=== PATIENT | female | born 1995 | race Caucasian/White ===

== ENCOUNTER → 2020-11-27 | Outpatient (CLI) | payer BC ==
--- NOTE | 2020-11-27 14:00 | REP ---
INDICATION: ANATOMY/TATYANA 04/18/21 - 04/24/21. COMPARISON: None. TECHNIQUE: Real-time sonographic evaluation of the gravid uterus performed. FINDINGS: Estimated gestational age is19 weeks 0 days, EDC 04/23/2021. Today's measurements indicate appropriate growth. Presentation: Cephalic Placenta posterior, grade 1, without evidence of placenta previa. heart rate is recorded at 150 beats per minute. Amniotic fluid is subjectively normal. Closed cervical length is measured at 5.2 cm. Biometry chart: BPD: 46 mm, 19 weeks 6 days, 74th percentile. HC: 173 mm, 19 weeks 6 days, 75th percentile AC: 148 mm, 20 weeks 0 days, 72nd percentile Femur length: 32 mm, 20 weeks 0 days, 75th percentile HC to AC ratio: 1.17, normal range 1.06-1.25. Estimated weight: 326g, greater than 97th percentile. anatomy: Cranium: Grossly normal Lateral Ventricles/Choroid Plexus: Grossly normal Posterior Fossa/Cerebellum: Grossly normal Nose/lips/profile: Grossly normal Four chamber heart: Grossly normal Right ventricular outflow tract: Not well seen due to position. Left ventricular outflow tract: Grossly normal Left-sided stomach: Grossly normal Kidneys: Grossly normal Bladder: Grossly normal Cord Insertion: Grossly normal 3 vessel cord: Grossly normal Spine: Not well seen due to position. IMPRESSION: Viable single intrauterine gestation as above. <Electronically signed by Aguilar Pitts > 11/27/20 [id number]
== END ==
LOC: M WHC 12:56
PROVIDERS: ATTEND Advanced Practice Midwife
DX: Z34.82 Encounter for supervision of other normal pregnancy, second trimester (principal)

== ENCOUNTER 2020-12-04 18:15 | Emergency (ER) | payer BC ==
[~2020-12-04] VITALS: Ht 167.6 cm; Wt 100.6 kg
[2020-12-04] MEDS ORDERED: PRENTAB53 PO (18:23)
[2020-12-04 20:15] LABS: HEMATOCRIT 34.9 % (36.0-47.0); HEMOGLOBIN 11.4 g/dl (12.0-15.5); MEAN CORPUSCULAR HEMOGLOBIN 28.2 pg (27.0-33.0); MEAN CORPUSCULAR HGB CONC 32.7 g/dl (32.0-36.5); MEAN CORPUSCULAR VOLUME 86.4 fl (80.0-96.0); PLATELET COUNT, AUTOMATED 588 10^3/uL (150-450); RED BLOOD COUNT 4.04 10^6/uL (4.00-5.40); WHITE BLOOD COUNT 15.7 10^3/uL (4.0-10.0)
[2020-12-04 20:42] LABS: ALBUMIN 2.9 GM/DL (3.2-5.2); ALT/SGPT 18 U/L (12-78); BILIRUBIN,DIRECT < 0.1 MG/DL (0.0-0.2); BILIRUBIN,TOTAL 0.2 MG/DL (0.2-1.0); TOTAL PROTEIN 7.2 GM/DL (6.4-8.2)
[2020-12-04] MEDS ORDERED: ONDANSETRON 4MG/2ML VIAL IV ONE (21:00)
[2020-12-04] MEDS ORDERED: NS 1,000 ML IV ONE (21:00)
[2020-12-04 21:42] LABS: MONO SCRN NEGATIVE (NEGATIVE)
[2020-12-04] MEDS ORDERED: diphenhydrAMINE 50MG/ML VIAL (J1200) IV ONE (22:05)
[2020-12-04] MEDS ORDERED: ACETAMINOPHEN 500 MG TAB PO ONE (22:05)
[2020-12-04 22:32] LABS: RSV AMPLIFICATION NEGATIVE (NEGATIVE)
[2020-12-05] MEDS ORDERED: MULTIVITAMIN -ADULT INJECTION 10 ML, THIAMINE INJection 100 MG, FOLIC ACID 1 MG in NS 1... IV ONE ×4
[2020-12-05] MEDS ORDERED: MAG SULF 1GM/100ML (MAG RUN) 1 GM in IV 1 EA IV ONE (02:55)
[2020-12-05] MEDS ORDERED: METOCLOPRAMIDE INJ 10MG/2ML VIAL (J2765 PER 1) IV ONE (02:55)
[2020-12-05 03:24] LABS: BASO # 0.1 10^3/uL (0.0-0.2); BASO % 0.3 % (0.0-1.0); EOS # 0.3 10^3/uL (0.0-0.5); EOS % 1.9 % (0.0-3.0); LYMPH # 3.2 10^3/uL (1.5-5.0); LYMPH % 20.8 % (24.0-44.0); MONO # 0.9 10^3/uL (0.0-0.8); MONO % 5.6 % (2.0-8.0); NEUTROPHILS % 70.9 % (36.0-66.0)
--- NOTE | 2020-12-05 03:37 | REPVR ---
PROCEDURE INFORMATION: Exam: CT Head Without Contrast Exam date and time: 12/05/2020 2:46 AM Age: 25 years old Clinical indication: Pain; Headache not specified; Additional info: Intractable headache TECHNIQUE: Imaging protocol: Computed tomography of the head without contrast. Radiation optimization: All CT scans at this facility use at least one of these dose optimization techniques: automated exposure control; mA and/or kV adjustment per patient size (includes targeted exams where dose is matched to clinical indication); or iterative reconstruction. COMPARISON: No relevant prior studies available. FINDINGS: Brain: The white-neal differentiation is preserved demonstrating no acute territorial type infarct. No acute intracranial hemorrhage is visualized. No intracranial mass effect. There is no midline shift. Artifact limits evaluation of the lam. Cerebral ventricles: No ventriculomegaly. Bones/joints: The calvarium demonstrates no evidence for a depressed fracture. Paranasal sinuses: The frontal sinuses are not formed. No air-fluid levels within the remaining paranasal sinuses. Mastoid air cells: No mastoid effusion. Soft tissues: Unremarkable. IMPRESSION: No acute intracranial abnormality. Electronically signed by: Lars Ramirez On 12/05/2020 03:36:56 AM
[2020-12-05 04:14] LABS: PLATELET ESTIMATE NORMAL (NORMAL)
[2020-12-05] MEDS ORDERED: ONDA4TAB6 PO (05:23)
[2020-12-05 05:30] VITALS: BP 136/66
== END 2020-12-05 05:44 | disposition home or self-care (01) ==
LOC: M ED 18:15
DX: O99.355 Diseases of the nervous system complicating the puerperium (principal); R51.9 Headache, unspecified; Z3A.21 21 weeks gestation of pregnancy; Z79.899 Other long term (current) drug therapy
CPT/HCPCS: 70450; 80047; 80076; 81001; 85027; 86308; 87086; 87631; 87880; 96361; 96365; 96367; 96375; 99284; J1200; J2405; J2765; J3411; J3475

== ENCOUNTER → 2021-01-01 | Outpatient (CLI) | payer BC, OTHER ==
[~2021-01-01] MED LIST: ONDA4TAB6 PO; PRENTAB53 PO
--- NOTE | 2021-01-01 10:17 | REP ---
INDICATION: F/U ANATOMY-SPONE/HEART/VOTS COMPARISON: 11/27/2020 TECHNIQUE: Transabdominal obstetrical ultrasound with color Doppler evaluation. FINDINGS: Examination demonstrates a single live intrauterine in cephalic presentation. motion is identified by technologist. Placenta is noted posterior and grade 1 without evidence for placenta previa or abruption. Amniotic fluid volume is normal. Gestational age by LMP and 1st U/S 24 weeks 0 days with TATYANA 04/23/2021. Gestational age by current measurements 24 weeks 4 days with TATYANA 04/19/2021. FHR equals 144 beats per minute. Estimated weight 703 grams (72ndpercentile based on selected age at 23 weeks 6 days). Anatomical assessment demonstrates normal structures including cranium, choroid plexus, cavum, cerebellum/posterior fossa, orbits, lungs, four-chamber heart/ventricular outflow tracts, diaphragm, stomach, cord insertion/three-vessel cord, kidneys/bladder, spine, and extremities. IMPRESSION: Single live intrauterine in cephalic presentation demonstrating appropriate estimated weight. In conjunction with prior examination anatomical assessment is complete and normal. <Electronically signed by Gabo Maya > 01/01/21 [id number]
== END ==
LOC: M WHC 08:29
PROVIDERS: ATTEND Advanced Practice Midwife
DX: Z36.89 Encounter for other specified antenatal screening (principal)

== ENCOUNTER → 2021-01-23 | Outpatient (REF) | payer OTHER ==
[2021-01-23 13:55] LABS: HEMATOCRIT 29.9 % (36.0-47.0); HEMOGLOBIN 9.5 g/dl (12.0-15.5); MEAN CORPUSCULAR HEMOGLOBIN 26.9 pg (27.0-33.0); MEAN CORPUSCULAR HGB CONC 31.8 g/dl (32.0-36.5); MEAN CORPUSCULAR VOLUME 84.7 fl (80.0-96.0); PLATELET COUNT, AUTOMATED 625 10^3/uL (150-450); RED BLOOD COUNT 3.53 10^6/uL (4.00-5.40)
== END ==
LOC: M PLALAB 10:07
PROVIDERS: ATTEND Advanced Practice Midwife
DX: Z34.92 Encounter for supervision of normal pregnancy, unspecified, second trimester (principal)

== ENCOUNTER → 2021-03-17 | Outpatient (REF) | payer OTHER | LOC: M PLALAB 08:47 | PROVIDERS: ATTEND Obstetrics & Gynecology | DX: O99.013 Anemia complicating pregnancy, third trimester (principal) ==

== ENCOUNTER → 2021-03-26 | Outpatient (REF) | payer OTHER | LOC: M SFHCWAGY 16:56 | PROVIDERS: ATTEND Advanced Practice Midwife | DX: O99.213 Obesity complicating pregnancy, third trimester (principal) ==

== ENCOUNTER 2021-04-09 04:11 | Inpatient (IN) | payer OTHER ==
[~2021-04-09] VITALS: Ht 167.6 cm; Wt 110.5 kg
[2021-04-09] VITALS (23 sets, daily range): BP systolic 120–144; BP diastolic 59–85
[2021-04-09] MEDS ORDERED: FERR32TA PO (04:35)
[2021-04-09] MEDS ORDERED: HOME MED LIST COMPLETE! XX SCH ×2 (04:40→08:55)
[2021-04-09] MEDS ORDERED: CARBOPROST TROMETHAMINE 250 MCG/ML AMP IM PRN (06:50)
[2021-04-09] MEDS ORDERED: LIDOCAINE 1% MDV 20ML VIAL INFIL PRN (06:50)
[2021-04-09] MEDS ORDERED: OXYTOCIN DRIP 30 UNITS in IV 1 EA IV SCH (06:50)
[2021-04-09] MEDS ORDERED: OXYTOCIN DRIP 30 UNITS in IV 1 EA IV PRN ×4 (06:50)
[2021-04-09] MEDS ORDERED: METHYLERGONOVINE MALEATE 0.2 MG/ML VIAL (J2210) IM PRN (06:50)
[2021-04-09] MEDS ORDERED: OXYTOCIN INJ 10 UNITS/ML VIAL (J2590) IM PRN (06:50)
[2021-04-09 07:14] LABS: HEMATOCRIT 33.8 % (36.0-47.0); HEMOGLOBIN 11.1 g/dl (12.0-15.5); MEAN CORPUSCULAR HEMOGLOBIN 27.6 pg (27.0-33.0); MEAN CORPUSCULAR HGB CONC 32.8 g/dl (32.0-36.5); MEAN CORPUSCULAR VOLUME 84.1 fl (80.0-96.0); PLATELET COUNT, AUTOMATED 464 10^3/uL (150-450); RED BLOOD COUNT 4.02 10^6/uL (4.00-5.40); WHITE BLOOD COUNT 12.9 10^3/uL (4.0-10.0)
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
[2021-04-09] MEDS ORDERED: FERR240T PO (09:02)
[2021-04-09] MEDS: LR 1,000 ML IV SCH ×2 (09:43→16:59)
[2021-04-09] MEDS ORDERED: PROMETHAZINE INJ 25 MG/ML VIAL (J2550) IV ONE (16:45)
[2021-04-09] MEDS ORDERED: BUTORPHANOL 2 MG/ML INJ (J0595) IV ONE (16:45)
[2021-04-09] MEDS ORDERED: IBUPROFEN 600MG TAB PO PRN (18:20)
[2021-04-09] MEDS ORDERED: ACETAMINOPHEN TAB 650MG DOSE (2X325MG) PO PRN (18:20)
[2021-04-09] MEDS ORDERED: DIBUCAINE 1% OINTMENT 30GM TOP PRN (18:20)
[2021-04-09] MEDS ORDERED: RHOGAM 300 MCG (1500 IU) INJ (J2790) IM SCH (18:20)
[2021-04-09] MEDS ORDERED: MEASLES,MUMPS,RUBELLA VACCINE INJ (MMR-II) (90707) SC SCH (18:20)
[2021-04-09] MEDS ORDERED: METHYLERGONOVINE MALEATE 0.2 MG TAB PO PRN (18:20)
[2021-04-09] MEDS ORDERED: DOCUSATE SODIUM 100MG CAPSULE PO PRN (18:20)
--- NOTE | 2021-04-09 18:39 | DN ---
DELIVERY NOTE DATE OF DELIVERY: 04/09/2021 TIME OF : GENDER: Male APGARS: 9 and 9 LACERATIONS: First-degree midline ANESTHESIA: ESTIMATED BLOOD LOSS: COUNTS: Correct and verified DESCRIPTION OF DELIVERY: Cathy is a 25-year-old 2, para 2-0-0-2, admitted to labor and delivery with premature rupture of membranes. IV Pitocin was started and labor did ensue. She coped with her labor physiologically. She reached complete dilation at 1746. She pushed to a normal spontaneous vaginal delivery of a live male infant in occiput anterior (OA) position with restitution to Right occiput transverse (ROT) position. At 1748 the was handed to mother between her legs with good cry. Mouth and nares were bulb suctioned. Mother was returned to lithotomy position. The cord was clamped x2 once pulsations ceased and cut by the father of the baby under my direction. Cord blood was obtained. Spontaneous expulsion of an intact placenta with three-vessel cord by New mechanism was 15 1754. Uterine hemostasis achieved with IV Pitocin rapid infusion and uterine fundal massage. Estimated blood loss 350 mL. Perineum and vagina inspected noted to have a first-degree midline laceration. The laceration was infiltrated with 1% Lidocaine and repaired with 3-0 Vicryl Rapide in the usual fashion. [place] male weighed 8 pounds 9 ounces (3870 grams). Apgars were 9 and 9. Mom is going to try to breastfeed her son and they have named him Magdaleno. At the close of delivery, lap counts, needle counts, and instrument counts were correct and verified.
[2021-04-09] MEDS: IBUPROFEN 800 MG TAB PO PRN (21:57)
[2021-04-10] MEDS: ACETAMINOPHEN 500 MG TAB PO PRN ×3 (05:30→19:52)
[2021-04-10 06:15] VITALS: BP 127/61
[2021-04-10] MEDS: PRENATAL VITAMINS CHEWABLE TABLET PO SCH (08:50)
[2021-04-10] MEDS: IBUPROFEN 800 MG TAB PO PRN ×2 (12:49→22:11)
--- NOTE | 2021-04-10 15:04 | IPNPDOC ---
Progress Note Date of Service: Apr 10, 2021 Progress Note SUBJECT: Status post . She has been ambulating, voiding spontaneously without issue and tolerating regular diet. Lochia decreasing/minimal. Pain is well-controlled. Denies headache, visual changes, right upper quadrant pain, shortness breath or chest pain. OBJECTIVE: VITAL SIGNS: Within normal limits, afebrile. Alert and oriented times three. Abdomen: Fundus firm at U-2. Soft, NTTP. ASSESSMENT: Status post uncomplicated spontaneous vaginal delivery. Vitals within normal limits, afebrile, hemodynamically stable with no evidence of infection. PLAN: Discharge to home tomorrow Tylenol and Motrin for pain. Routine instructions/precautions reviewed. Routine PP visit in 6 weeks in clinic. VS, I&O, 24H, Fishbone Vital Signs/I&O Vital Signs Date Time Temp Pulse Resp B/P (MAP) Pulse Ox O2 Delivery O2 Flow Rate FiO2 04/10/21 06:15 97.7 70 20 127/61 (83) 99 Room Air I&O- Last 24 Hours up to 6 AM 04/10/21 06:00 Intake Total 200 ml Output Total 350 ml Balance -150 ml Laboratory Data 24H LABS Laboratory Tests 2 04/09/21 19:19: Serology Scanned Report Hepatitis B Testing BRENNA WATTS DO Apr 10, 2021 15:04
[2021-04-10 18:00] VITALS: BP 138/69
[2021-04-11] MEDS: IBUPROFEN 800 MG TAB PO PRN (08:44)
[2021-04-11] MEDS: PRENATAL VITAMINS CHEWABLE TABLET PO SCH (08:44)
[2021-04-11] MEDS ORDERED: ACET-683 PO (10:45)
[2021-04-11] MEDS ORDERED: IBUP80TA PO (10:45)
== END 2021-04-11 11:13 | disposition home or self-care (01) | DRG 807 ==
LOC: M LDO 04:11 → M LDI 05:43 → M OBS 20:11
PROVIDERS: ADMIT Specialist; ATTEND Advanced Practice Midwife
PROC: 10E0XZZ Delivery of Products of Conception, External Approach (ICD-10-PCS; principal; 2021-04-09)
PROC: 3E033VJ Introduction of Other Hormone into Peripheral Vein, Percutaneous Approach (ICD-10-PCS; 2021-04-09)
PROC: 0HQ9XZZ Repair Perineum Skin, External Approach (ICD-10-PCS; 2021-04-09)
DX: O42.02 Full-term premature rupture of membranes, onset of labor within 24 hours of rupture (principal); Z37.0 Single live birth; Z3A.37 37 weeks gestation of pregnancy; O70.0 First degree perineal laceration during delivery